=== PATIENT | female | born 1940 | race Caucasian/White ===

== ENCOUNTER 2020-11-12 12:49 | Emergency (ER) | payer MEDICARE, BC ==
[~2020-11-12] VITALS: Ht 177.8 cm; Wt 74.8 kg
[2020-11-12 18:30] VITALS: BP 134/87
[2020-11-12 20:14] LABS: Basophils # (auto) 0 10 ^3/uL (0-0.2); Basophils % (auto) 0.9 % (0.0-2.0); Eosinophils # (auto) 0.1 10 ^3/uL (0-0.8); Eosinophils % (auto) 2.9 % (0.0-7.0); Hematocrit 36.1 % (36.0-46.0); Hemoglobin 12.1 g/dL (12.2-16.2); Lymphocytes # (auto) 0.7 10 ^3/uL (0.4-5.4); Lymphocytes % (auto) 18.5 % (10.0-50.0); Mean Corpuscular Hemoglobin 31.8 pg (28.0-32.0); Mean Corpuscular Hgb Conc. 33.5 g/dL (32.0-36.0); Mean Corpuscular Volume 95.1 fL (80.0-100.0); Monocytes # (auto) 0.1 10 ^3/uL (0-1.3); Monocytes % (auto) 3.5 % (0.0-12.0); Neutrophils # (auto) 2.7 10 ^3/uL (1.6-8.6); Neutrophils % (auto) 74.2 % (37.0-80.0); Nucleated Red Blood Cells % 0.2 %; Platelet Count (auto) 194 10^3/uL (140-450); Red Cell Distribution Width 15.8 % (11.8-14.3); White Blood Cell 3.6 10^3/uL (4.4-10.8)
[2020-11-12 20:32] LABS: Potassium 3.1 mmol/L (3.5-5.1)
[2020-11-12 20:43] LABS: Albumin 2.8 g/dL (3.4-5.0); BUN/Creatinine Ratio 20.9; Bilirubin, Total 0.3 mg/dL (0.2-1.0); Calcium 8.6 mg/dL (8.5-10.1); Total Protein 6.5 g/dL (6.4-8.2)
[2020-11-12] MEDS ORDERED: MORPHINE SULF INJ 2 MG/ML SYRINGE 1ML IV ONE (21:15)
[2020-11-12] MEDS ORDERED: ASPirin 81 mg TAB PO ONE (21:15)
[2020-11-12] MEDS ORDERED: NITROGLYCERIN 0.4 MG SL TAB SL ONE (21:15)
== END 2020-11-13 01:01 | disposition home or self-care (01) ==
LOC: ER 12:49 → EDBD 12:49 → ER 11-13 01:01
DX: S01.81XA Laceration without foreign body of other part of head, initial encounter (principal); R53.1 Weakness; I10 Essential (primary) hypertension; Z88.1 Allergy status to other antibiotic agents; Z88.5 Allergy status to narcotic agent; Z88.8 Allergy status to other drugs, medicaments and biological substances; W18.09XA Striking against other object with subsequent fall, initial encounter; Y93.89 Activity, other specified; Y92.89 Other specified places as the place of occurrence of the external cause; Y99.8 Other external cause status
CPT/HCPCS: 12011; 36415; 70450; 80053; 84484; 85025; 93005